=== PATIENT | female | born 1940 | race Caucasian/White ===

== ENCOUNTER 2021-05-31 15:58 | Emergency (ER) | payer OTHER, SELFPAY ==
[2021-05-31] VITALS (12 sets, daily range): BP systolic 99–122; BP diastolic 66–75; PULSE 86–103; RESP 23–31; TEMP 36.3; O2SAT 78–99
--- NOTE | ~2021-05-31 | CT_ITS ---
EXAMINATION: CTA chest PE protocol DATE: 05/31/2021 18:11 INDICATION: Shortness of breath. Low oxygen saturation. Elevated d-dimer. TECHNIQUE: Computed tomography angiography (CTA) of the chest was performed with 100 mL Omnipaque-350 intravenous contrast timed to evaluate the pulmonary arteries. Coronal maximum intensity projection 3D-reconstructions were created by the technologist. Automated exposure control and iterative reconst ruction technique were employed. Exam dose: 320.63 mGy-cm total exam DLP. COMPARISON: 05/31/2021 AP and lateral chest FINDINGS: There is moderate opacification the pulmonary arteries and no apparent pulmonary embolism. There is cardiomegaly. No pericardial or pleural effusion. No thoracic aortic aneurysm or dissection. There is bilateral hilar and mediastinal lymphadenopathy, possibly reactive. There is extensive pulmonary septal soft tissue thickening and honeycombing favoring the peripheral l donavan zones suggesting usual interstitial pneumonia interstitial fibrosis. Superimposed pneumonia is no t excluded. 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 IMPRESSION: Extensive interstitial fibrotic changes in a pattern suggestive of usual interstitial pn [place] interstitial fibrosis Superimposed pneumonia is not excluded. Cardiomegaly Bilateral hilar and mediastinal lymphadenopathy, possibly reactive Reviewed, dictated and finalized at [facility]. Reviewed, dictated and finalized at [facility]. IMPRESSION: Extensive interstitial fibrotic changes in a pattern suggestive of usual interstitial pneumonia interstitial fibrosis Superimposed pneumonia is not excluded. Cardiomegaly Bilateral hilar and mediastinal lymphadenopathy, possibly reactive
--- NOTE | ~2021-05-31 | XR_ITS ---
EXAMINATION: XR chest 2V DATE: 05/31/2021 16:53 INDICATION: Shortness of breath. TECHNIQUE: Frontal and lateral views of the chest were obtained. COMPARISON: None. FINDINGS: The lung volumes are small. There are airspace and interstitial opacities throughout the lyndsay ngs bilaterally with a peripheral predominance with architectural distortion. No pleural effusion or pneumothorax. Cardiomegaly is noted. 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 IMPRESSION: 1. Diffuse lung disease, likely predominantly chronic interstitial lung disease. Some component of ac brian lung disease cannot be excluded. 2. Cardiomegaly. Reviewed, dictated and finalized at [facility]. IMPRESSION: 1. Diffuse lung disease, likely predominantly chronic interstitial lung disease . Some component of acute lung disease cannot be excluded. 2. Cardiomegaly.
--- NOTE | 2021-05-31 16:19 | ECG_ITS ---
Measurements Intervals [place] Rate: 97 P: 51 MN: 171 QRS: -11 QRSD: 86 T: 54 QT: 348 QTc: 443 Interpretive Statements SINUS RHYTHM POSSIBLE RIGHT ATRIAL ENLARGEMENT POSSIBLE LEFT ATRIAL ENLARGEMENT POSSIBLE LEFT VENTRICULAR HYPERTROPHY BORDERLINE R WAVE PROGRESSION, ANTERIOR LEADS CONSIDER INFERIOR INFARCT, AGE INDETERMINATE BASELINE WANDER- I, II, AVR, AVL, AVF, V1-V6 ABNORMAL ECG Electronically Signed On 05-31-2021 19:25:41 CDT by Quintin Gonzalez D.O.
--- NOTE | 2021-05-31 16:31 | ED.GENADULT ---
HPI - General Adult General Chief complaint: Shortness of Breath/Dyspnea Stated complaint: SOB Time Seen by Provider: 05/31/21 16:11 Source: patient History of Present Illness HPI narrative: Patient is a 80 yo female complaining of SOB today. She states that she was at her doctor's office today and her pulse ox was 58% when she tried to go to the bathroom. Her sat did not come up immediately as it usually does. She has chronic cough. She has no fever or chest pain. She has history of pulmonary hypertension and pulmonary fibrosis and she is on 5 L O2 at baseline. Related Data Home Medications Medication Instructions Recorded Confirmed albuterol mcg INHALATION 05/31/21 apixaban [Eliquis] 5 mg PO BID 05/31/21 budesonide [Pulmicort] 0.5 mg INHALATION DAILY 05/31/21 fluticasone furoate 1 spray INTRANASAL DAILY 05/31/21 furosemide [Lasix] 20 mg PO DAILY 05/31/21 metoprolol tartrate 25 mg PO DAILY 05/31/21 pantoprazole 40 mg PO QAM 05/31/21 potassium chloride 10 meq PO DAILY 05/31/21 prednisone 10 mg PO DAILY 05/31/21 riociguat [Adempas] 1.5 mg PO TID 05/31/21 05/31/21 Allergies Allergy/AdvReac Type Severity Reaction Status Date / Time ciprofloxacin [From Cipro] Allergy Unknown Verified 05/31/21 16:18 demarol Allergy Unknown Uncoded 05/31/21 16:18 Review of Systems Constitutional: Constitutional: Denies chills, Denies fever(s), Denies headache(s) and Denies weakness Eyes: Eyes: Denies blurry vision ENT: Denies headache(s) and Denies neck pain Cardiovascular: Cardiovascular: Denies chest pain and Reports dyspnea Respiratory: Respiratory: Reports cough and Reports dyspnea Gastrointestinal: Gastrointestinal: Denies abdominal pain, Denies diarrhea, Denies nausea and Denies vomiting Genitourinary: Genitourinary: Denies hematuria and Denies dysuria Musculoskeletal: Musculoskeletal: Denies back pain and Denies neck pain Neurologic: Denies headache(s) and Denies weakness [facility] Past Medical History Medical History (Updated 06/01/21 @ 00:23 by Denise Gonsalves MD) Pulmonary fibrosis Pulmonary hypertension Exam Const: General: no acute distress and well developed Orientation/consciousness: oriented to person, oriented to place, oriented to time and patient oriented x3 HENMT: Head: normocephalic Ears: external ears normal General nose exam: Normal external nose present Eyes: General: appearance normal, both eyes and all related structures Conjunctivae: conjunctivae normal Neck: Neck: normal visual inspection and full ROM Chest: Chest palpation & inspection: normal inspection of the chest and no tenderness Resp: Effort & Inspection: tachypneic Auscultation: clear to auscultation bilaterally Cardio: Rate: regular rate Rhythm: regular rhythm GI: GI Palp: No abdominal tenderness and Yes Soft to palpation Skin: General skin exam: normal color and turgor normal Neuro: General: oriented to person, oriented to place, oriented to time and patient oriented x3 Cognition (Neuro): normal cognition Extrem: General: normal to inspection, full ROM and no pedal edema Psych: Appearance: grossly normal Mental Status: mental status grossly normal Affect: normal affect Course Vital Signs Vital signs: Vital Signs Temperature 36.3 C L 05/31/21 16:12 Pulse Rate 102 H 05/31/21 16:12 Respiratory Rate 28 H 05/31/21 16:12 Blood Pressure 122/73 05/31/21 16:12 Pulse Oximetry 92 05/31/21 16:12 Temperature 36.3 C L 05/31/21 16:12 Pulse Rate 103 H 05/31/21 21:38 Respiratory Rate 24 H 05/31/21 21:38 Blood Pressure 102/70 05/31/21 21:38 Pulse Oximetry 96 05/31/21 21:38 Medical Decision Making Vital Signs Vital Signs: Vital Signs Temperature 36.3 C L 05/31/21 16:12 Pulse Rate 102 H 05/31/21 16:12 Respiratory Rate 28 H 05/31/21 16:12 Blood Pressure 122/73 05/31/21 16:12 Pulse Oximetry 92 05/31/21 16:12 Temperature 36.3 C L 05/31/21 16:12 Pulse Rate 103 H
[2021-05-31 16:38] LABS: Basophils Percent Auto 0.3 % (0.2-1.2); Eosinophils Percent Auto 0.2 % (0-4.4); Hemoglobin 12.8 g/dL (12.0-15.0); Immature Granulocyte Absolute 0.09 K/mm3 (0.00-0.031); Immature Granulocyte Percent A 0.7 % (0-0.5); Lymphocytes Absolute Auto 1.44 K/mm3 (0.9-3.2); Lymphocytes Percent Auto 11.6 % (18.3-44.2); Mean Corpuscular Hemoglobin 28.4 pg (26-34); Mean Corpuscular Volume 88.9 fl (80-100); Mean Platelet Volume 8.6 fl (7.4-10.4); Monocytes Absolute Auto 0.8 K/mm3 (0.1-0.6); Monocytes Percent Auto 6.5 % (2.6-8.5); Neutrophils Percent Auto 80.7 % (45.5-73.1); Platelet Count Result 565 k/mm3 (150-375); Red Cell Distribution Width 13.4 % (11.5-14.5); White Blood Count 12.4 K/mm3 (4.5-10.0)
[2021-05-31 17:09] LABS: Anion Gap 11 mmol/L (8-16); Blood Urea Nitrogen 19 mg/dL (7-17); Calcium 9.9 mg/dL (8.4-10.2); Carbon Dioxide 29 mmol/L (22-30); Chloride 101 mmol/L (98-107); Estimated CRCL calculation 47 ml/min; Estimated Glomerular Filt Rate 60; Glucose 125 mg/dL (65-110); Potassium 3.9 mmol/L (3.4-5.0); Sodium 141 mmol/L (137-145)
[2021-05-31 17:36] LABS: NT Pro B Type Natriuretic Pept 398 pg/mL (5-100); Troponin I < 0.012 ng/mL (0.000-0.034)
[2021-05-31 17:42] LABS: D Dimer 0.95 ug/mL (<0.48)
--- NOTE | 2021-05-31 19:21 | PC.NURSE ---
Report quincy Wei, assumed care of pt at this time.
[2021-05-31 20:09] LABS: EDCOVIDSCREEN Negative (Negative)
[2021-05-31 20:55] LABS: Troponin I < 0.012 ng/mL (0.000-0.034)
== END 2021-05-31 21:41 | disposition home or self-care (01) ==
PROVIDERS: Family Medicine; Emergency Provider Emergency Medicine; PCP Family Medicine
DX: R06.02 Shortness of breath (principal); I27.20 Pulmonary hypertension, unspecified; J84.10 Pulmonary fibrosis, unspecified; Z20.822 Contact with and (suspected) exposure to COVID-19; Z79.01 Long term (current) use of anticoagulants; R94.31 Abnormal electrocardiogram [ECG] [EKG]
CPT/HCPCS: 36415; 71046; 71275; 80048; 83880; 84484; 85025; 85380; 87426; 93005; 99284; C9803; Q9967